=== PATIENT | female | born 1995 | race Caucasian/White ===

== ENCOUNTER 2018-01-09 12:26 | Emergency (ER) | payer SELFPAY ==
[2018-01-09 12:39] VITALS: BP 113/72
--- NOTE | 2018-01-09 12:41 | ER Document Report ---
HPI - HPI Pain Level: Denies Context: Patient is 22-year-old female who presents emergency department the chief complaint of right thigh insect bite. Patient states that she felt on and it has gotten more red and more painful with blistering in clusters over top. She denies any fevers or chills, worsening surrounding redness. Patient states she has a history of staph infections Past Medical History - Social History Smoking Status: Never Smoker Chew tobacco use (# tins/day): No Frequency of alcohol use: None Drug Abuse: None Family History: Reviewed & Not Pertinent Patient has suicidal ideation: No Patient has homicidal ideation: No Renal/ Medical History: Denies: Hx Peritoneal Dialysis Past Surgical History: Reports: Hx Appendectomy Vertical Provider Document - CONSTITUTIONAL Agree With Documented VS: Yes Notes: PHYSICAL EXAM GENERAL: Alert, interacts well. EXTREMITIES: Moves all 4 extremities spontaneously. No edema, radial and dorsalis pedis pulses 2/4 bilaterally. No cyanosis. NEUROLOGICAL: Alert and oriented x4. Normal speech. PSYCH: Normal affect, normal mood. SKIN: Warm, dry, normal turgor. 1 cm erythematous wheal with overlying blisters without purulent drainage on the lateral aspect of the right thigh minimal tenderness palpation. Course - Re-evaluation Re-evalutation: 01/09/18 12:45 Patient is a 22-year-old female hemodynamic stable, no acute distress afebrile. Presentation is consistent with superficial infection of an insect bite. Will treat with Bactroban ointment and given strict return precautions otherwise follow-up with primary care. Patient agrees with plan stable for discharge home - Vital Signs Vital signs: Temp Pulse Resp BP Pulse Ox 98.6 F 76 14 113/72 100 01/09/18 12:38 01/09/18 12:38 01/09/18 12:38 01/09/18 12:38 01/09/18 12:38 Discharge - Discharge Clinical Impression: Insect bite Qualifiers: Encounter type: initial encounter Qualified Code(s): W57.XXXA - Bitten or stung by nonvenomous insect and other nonvenomous arthropods, initial encounter Condition: Good Disposition: HOME, SELF-CARE Instructions: Insect Bites ([facility]) Prescriptions: Mupirocin Calcium [Bactroban] 15 gm TP TID 5 Days cream..g.
== END 2018-01-09 12:48 | disposition home or self-care (01) ==
LOC: ER 12:26
DX: S70.361A Insect bite (nonvenomous), right thigh, initial encounter (principal); W57.XXXA Bitten or stung by nonvenomous insect and other nonvenomous arthropods, initial encounter; E78.2 Mixed hyperlipidemia; Z79.899 Other long term (current) drug therapy
CPT/HCPCS: 99283